=== PATIENT | male | born 1955 | race Caucasian/White ===

== ENCOUNTER 2018-05-17 19:39 | Emergency (ER) | payer MEDICARE, BC ==
[2018-05-17 20:17] LABS: BASO % 0.6 % (0-6); EOS % 0.2 % (0-6); GRAN % 66.1 % (47-80); HEMATOCRIT 32.1 % (42.0-52.0); HEMOGLOBIN 10.5 gm/dl (14.0-18.0); MEAN CORPUSCULAR HGB CONC 32.7 g/dl (32-36); MEAN PLATELET VOLUME 8.5 fl (7.4-10.4); MONO % 10.1 % (0-9); PLATELET COUNT 250 K/uL (130-400); RED BLOOD COUNT 3.49 M/uL (4.40-5.70); RED CELL DISTRIBUTION WIDTH 16.3 % (11.5-14.5); WHITE BLOOD COUNT W/O DIFF 5.2 K/uL (4.2-12.2)
[2018-05-17 20:30] LABS: BLOOD UREA NITROGEN 11 mg/dL (8-23); CREATININE 0.7 mg/dL (0.7-1.2); EST GLOMERULAR FILTRATION RATE > 60 mL/min; TOTAL PROTEIN 6.8 g/dL (6.6-8.7)
[2018-05-17] MEDS: MVI, ADULT NO.4 WITH VIT K 10 ML, THIAMINE HCL IV 100 MG in 0.9 % SODIUM CHLORIDE 1000M... IV SCH ×3 (20:30)
[2018-05-17 20:32] LABS: GLUCOSE,RANDOM 115 mg/dL (74-109)
[2018-05-17] MEDS: NITROGLYCERIN 0.4MG SL TABLET #25 BTL SL PRN (20:32)
[2018-05-17] MEDS: ASPIRIN 81 MG CHEWABLE TABLET PO ONE (20:33)
[2018-05-17 20:35] LABS: ALB/GLOB RATIO 1.8 (1.1-1.8); ALBUMIN 4.4 g/dL (4.0-5.0); ALKALINE PHOSPHATASE 125 U/L (40-129); ALT/SGPT 12 U/L (<41); AST/SGOT 20 U/L (10.0-50.0); CREATINE PHOSPHOKINASE 108 U/L (39-308)
[2018-05-17 20:38] LABS: CKMB 3.1 ng/mL (<6.73)
[2018-05-17 20:48] LABS: THYROID STIMULATING HORMONE 15.62 uIU/mL (0.270-4.20)
[2018-05-17] MEDS: KETOROLAC 30 MG/ML VIAL IVP ONE (21:07)
[2018-05-17 21:26] LABS: THYROXINE (T4) 4.33 ug/dL (4.5-11.7)
--- NOTE | 2018-05-17 22:18 | Emergency Department Record ---
History of Present Illness - General Chief Complaint: Chest Pain Stated Complaint: CHEST PAINS Time Seen by Provider: 05/17/18 19:52 Source: Patient Mode of Arrival: Ambulatory Limitations: No limitations - History of Present Illness Initial Comments: pt c/o cp. he was at [facility] all night last night for cp and was ruled out. he returns here tonight for same symptoms. he had chest/abd/pelvis ct that were neg at [facility] last night. he complains of being tired and is frequently falling asleep Onset/Timin -: Hour(s) Onset: During exertion Pain Location: Substernal Severity scale (1-10): 8 Quality: Other Consistency: Constant Improves With: Rest Worsens With: Exertion, Inspiration Anginal Symptoms: Dyspnea Treatments Prior to Arrival: None - Related Data Home Medications Medication Instructions Recorded Confirmed Last Taken No Home Med [NO HOME MEDS] 05/17/18 05/17/18 Unknown Allergies Allergy/AdvReac Type Severity Reaction Status Date / Time No Known Drug Allergies Allergy Verified 05/17/18 19:45 Travel Screening - Travel/Exposure Within Last 30 Days Have you traveled within the last 30 days?: No - Travel Symptoms Symptom Screening: None Review of Systems Reviewed: No additional complaints except as noted below Constitutional: Reports: As per HPI, Malaise. Denies: Chills, Fever, Night sweats, Weakness, Weight change Eyes: Reports: As per HPI. Denies: Eye discharge, Eye pain, Photophobia, Vision change ENT: Reports: As per HPI. Denies: Congestion, Dental pain, Ear pain, Epistaxis , Hearing loss, Throat pain Respiratory: Reports: As per HPI. Denies: Cough, Dyspnea, Hemoptysis, Stridor, Wheezes Cardiovascular: Reports: As per HPI, Chest pain. Denies: Arrhythmia, Dyspnea on exertion, Edema, Murmurs, Orthopnea, Palpitations, Paroxysmal nocturnal dyspnea, Rheumatic Fever, Syncope Endocrine: Reports: As per HPI. Denies: Fatigue, Heat or cold intolerance, Polydipsia, Polyuria Gastrointestinal: Reports: As per HPI. Denies: Abdominal pain, Constipation, Diarrhea, Hematemesis, Hematochezia, Melena, Nausea, Vomiting Genitourinary: Reports: As per HPI. Denies: Dysuria, Frequency, Hematuria, Incontinence, Retention, Testicular pain, Testicular mass, Urgency Musculoskeletal: Reports: As per HPI. Denies: Arthralgia, Back pain, Gout, Joint swelling, Myalgia, Neck pain Skin: Reports: As per HPI. Denies: Bruising, Change in color, Change in hair/ nails, Lesions, Pruritus, Rash Neurological: Reports: As per HPI. Denies: Abnormal gait, Confusion, Headache, Numbness, Paresthesias, Seizure, Tingling, Tremors, Vertigo, Weakness Psychiatric: Reports: As per HPI. Denies: Anxiety, Auditory hallucinations, Depression, Homicidal thoughts, Suicidal thoughts, Visual hallucinations Hematological/Lymphatic: Reports: As per HPI. Denies: Anemia, Blood Clots, Easy bleeding, Easy bruising, Swollen glands Past Medical History - SOCIAL HISTORY Smoking Status: Current every day smoker Alcohol Use: Occasional Drug Use Detail:: Marijuana - RESPIRATORY Hx Respiratory Disorders: No - CARDIOVASCULAR Hx Cardio Disorders: Yes Hx Hypertension: Yes - NEURO Hx Neuro Disorders: No - GI Hx GI Disorders: Yes Hx Irritable Bowel: Yes - Hx Genitourinary Disorders: Yes Hx Bladder Problem: Yes ("irritable") - ENDOCRINE Hx Endocrine Disorders: No - MUSCULOSKELETAL Hx Musculoskeletal Disorders: Yes Comment:: foot problem - PSYCH Hx Psych Problems: Yes Hx Depression: Yes - HEMATOLOGY/ONCOLOGY Hx Hematology/Oncology Disorders: No Family Medical History Any Significant Family History?: Yes Hx Dementia: Mother Hx Diabetes: Brother/Sister Hx Heart Disease: Father Physical Exam - General General Appearance: Alert, Oriented x3, Cooperative, Mild distress - Head Head exam: Normal inspection - Eye Eye exam: Normal appearance, PERRL, EOMI Pupils: Normal accommodation - ENT ENT exam: Normal exam, Mucous membranes moist, Normal external ear exam, Normal orophraynx Ear exam: Normal external inspection. negative: External canal tenderness Nasal Exam: Normal inspection. negative: Discharge, Sinus tenderness Mouth exam: Normal external inspection, Tongue normal Teeth exam: Normal inspection. negative: Dental caries Throat exam: Normal inspection. negative: Tonsillar erythema, Tonsillar exudate - Neck Neck exam: Normal inspection, Full ROM. negative: Tenderness - Respiratory Respiratory exam: Normal lung sounds bilaterally. negative: Respiratory distress - Cardiovascular Cardiovascular Exam: Regular rate, Normal rhythm, Normal heart sounds - GI/Abdominal GI/Abdominal exam: Soft, Normal bowel sounds. negative: Tenderness - Rectal Rectal exam: Deferred - exam: Deferred - Extremities Extremities exam: Normal inspection, Full ROM, Normal capillary refill. negative: Tenderness - Back Back exam: Reports: Normal inspection, Full ROM. Denies: Muscle spasm, Rash noted, Tenderness - Neurological Neurological exam: Alert, CN II-XII intact, Normal gait, Oriented X3 - Psychiatric Psychiatric exam: Normal affect, Normal mood - Skin Skin exam: Dry, Intact, Normal color, Warm Course Vital Signs 05/17/18 05/17/18 05/17/18 19:46 20:26 20:34 Temperature 98.1 F Pulse Rate Pulse Rate [ 64 Tower Hand ] Pulse Rate [ 73 63 Pulse Ox Probe] Respiratory 20 16 14 Rate Blood Pressure 110/77 [Left Arm] Blood Pressure 102/71 107/68 [Right Arm] Pulse Ox 97 96 95 05/17/18 05/17/18 05/17/18 20:36 20:40 21:11 Temperature Pulse Rate 65 Pulse Rate [ 65 60 Tower Hand ] Pulse Rate [ Pulse Ox Probe] Respiratory 14 12 16 Rate Blood Pressure [Left Arm] Blood Pressure 97/66 107/61 [Right Arm] Pulse Ox 95 97 99 05/17/18 22:02 Temperature Pulse Rate Pulse Rate [ 60 Tower Hand ] Pulse Rate [ Pulse Ox Probe] Respiratory 12 Rate Blood Pressure [Left Arm] Blood Pressure 102/68 [Right Arm] Pulse Ox 99 - Reevaluation(s) Reevaluation #1: 05/18/18 00:51 pt slept entire time here. easily arousable Medical Decision Making - Lab Data Result diagrams: 05/17/18 19:50 05/17/18 19:50 Lab Results 05/17/18 05/17/18 05/17/18 Range/Units 19:50 19:50 19:50 WBC 5.2 (4.2-12.2) K/uL RBC 3.49 L (4.40-5.70) M/uL Hgb 10.5 L (14.0-18.0) gm/dl Hct 32.1 L (42.0-52.0) % MCV 92.0 (81-97) fl MCH 30.0 (27-33) pg MCHC 32.7 (32-36) g/dl RDW 16.3 H (11.5-14.5) % Plt Count 250 (130-400) K/uL MPV 8.5 (7.4-10.4) fl Gran % 66.1 (47-80) % Lymphocytes % 23.0 (16-45) % Monocytes % 10.1 H (0-9) % Eosinophils % 0.2 (0-6) % Basophils % 0.6 (0-6) % Sodium 134 L (136-145) mmol/L Potassium 3.9 (3.4-4.5) mmol/L Chloride 98 (98-107) mmol/L Carbon Dioxide 22.0 (22-29) mmol/L Anion Gap 14.0 (7-16) BUN 11 (8-23) mg/dL Creatinine 0.7 (0.7-1.2) mg/dL Estimated GFR > 60 mL/min Random Glucose 115 H (74-109) mg/dL Calcium 8.5 L (8.8-10.2) mg/dL Total Bilirubin 0.50 (0.2-1.0) mg/dL AST 20 (10.0-50.0) U/L ALT 12 (<41) U/L Alkaline Phosphatase 125 (40-129) U/L Creatine Kinase 108 (39-308) U/L CK-MB (CK-2) 3.1 (<6.73) ng/mL Troponin T < 0.010 (0-0.010) ng/mL NT-Pro-B Natriuret Pep 514.10 H (<125) pg/mL Total Protein 6.8 (6.6-8.7) g/dL Albumin 4.4 (4.0-5.0) g/dL Globulin 2.4 (1.4-4.8) gm/dL Albumin/Globulin Ratio 1.8 (1.1-1.8) TSH 15.62 H (0.270-4.20) uIU/mL Thyroxine (T4) (4.5-11.7) ug/dL T3 Uptake (25-35) % Ethyl Alcohol 0.171 H (0-0.010) g/dL 05/17/18 Range/Units 19:50 WBC (4.2-12.2) K/uL RBC (4.40-5.70) M/uL Hgb (14.0-18.0) gm/dl Hct (42.0-52.0) % MCV (81-97) fl MCH (27-33) pg MCHC (32-36) g/dl RDW (11.5-14.5) % Plt Count (130-400) K/uL MPV (7.4-10.4) fl Gran % (47-80) % Lymphocytes % (16-45) % Monocytes % (0-9) % Eosinophils % (0-6) % Basophils % (0-6) % Sodium (136-145) mmol/L Potassium (3.4-4.5) mmol/L Chloride (98-107) mmol/L Carbon Dioxide (22-29) mmol/L Anion Gap (7-16) BUN (8-23) mg/dL Creatinine (0.7-1.2) mg/dL Estimated GFR mL/min Random Glucose (74-109) mg/dL Calcium (8.8-10.2) mg/dL Total Bilirubin (0.2-1.0) mg/dL AST (10.0-50.0) U/L ALT (<41) U/L Alkaline Phosphatase (40-129) U/L Creatine Kinase (39-308) U/L CK-MB (CK-2) (<6.73) ng/mL Troponin T (0-0.010) ng/mL NT-Pro-B Natriuret Pep (<125) pg/mL Total Protein (6.6-8.7) g/dL Albumin (4.0-5.0) g/dL Globulin (1.4-4.8) gm/dL Albumin/Globulin Ratio (1.1-1.8) TSH (0.270-4.20) uIU/mL Thyroxine (T4) 4.33 L (4.5-11.7) ug/dL T3 Uptake 34 (25-35) % Ethyl Alcohol (0-0.010) g/dL Disposition Disposition: Discharge Clinical Impression: Chest pain Qualifiers: Chest pain type: unspecified Qualified Code(s): R07.9 - Chest pain, unspecified Disposition: Home, Self-Care Condition: (1) Good Instructions: Chest Pain (ED) Additional Instructions: follow up with family doctor and real estate paralegal as previously scheduled. take aspirin 81mg a day. return sooner if worse Forms: Patient Portal Access Quality - Quality Measures Quality Measures: N/A - Blood Pressure Screening Does Patient Have Any of the Following: No Blood Pressure Classification: Normal BP Reading Systolic Measurement: 106 Diastolic Measurement: 69 Screening for High Blood Pressure: < Normal BP, F/U Not Required > [G9413]
--- NOTE | 2018-05-20 21:24 | RADIOLOGY REPORT ---
EXAM: CHEST 2 VIEWS HISTORY: CHEST PAIN. SHORTNESS OF BREATH. TECHNIQUE: Upright PA and lateral views of the chest. COMPARISON: None. FINDINGS: The heart is not enlarged and the pulmonary vasculature is nondilated. Minor linear scarring vs. atelectasis in the lateral mid to lower right lung. The lungs and pleural spaces are otherwise clear. There is borderline to mild hyperinflation of the lungs. There are mild degenerative changes of the visualized spine. IMPRESSION: 1. NO EVIDENCE OF ACUTE CARDIOPULMONARY DISEASE. 2. BORDERLINE TO MILD HYPERINFLATION OF THE LUNGS. 3. MINIMAL LINEAR SCARRING VS. ATELECTASIS IN THE LATERAL MID TO LOWER RIGHT LUNG. JOB NUMBER: [id number] [facility]
== END 2018-05-18 01:11 | disposition home or self-care (01) ==
LOC: ER 19:39
DX: R07.2 Precordial pain (principal); R06.00 Dyspnea, unspecified; R53.83 Other fatigue; I10 Essential (primary) hypertension; F17.210 Nicotine dependence, cigarettes, uncomplicated
CPT/HCPCS: 99284 ×2; 96365; 96375; 82550; 85025; 82553; 80053; 84443; 84479; 84436; 84484; 83880; 71046; 93005; 93010; G0480; J1885; 80320; J3411; J7030

== ENCOUNTER 2018-05-18 02:56 | Emergency (ER) | payer MEDICARE, BC ==
[2018-05-18] MEDS ORDERED: MAGNESIUM HYDROXIDE/AL HYDROX 30 ML, LIDOCAINE VISC 2% 15ML 15 ML PO ONE ×2 (02:57)
--- NOTE | 2018-05-18 03:06 | Emergency Department Record ---
History of Present Illness - General Chief Complaint: General Stated Complaint: NOT FEELING WELL Time Seen by Provider: 05/18/18 02:57 Source: Patient Mode of Arrival: Ambulatory Limitations: No limitations - History of Present Illness Initial comments: pt just dcd 95 min ago. pt never left waiting room. he was given coffee and warm blanket. he now wants to be checked in again because he doesnt feel right. he had an extensive neg workup last night including cat scans of chest and abd. he had a neg work up tonight including 4 hour troponins. he slept the entire time he was here tonight and indeed is already back asleep in his room. pt has been legally intoxicated both nights but would be below .08 now. - [place] Coma Scale Eye Response: (4) Open spontaneously Motor Response: (6) Obeys commands Verbal Response: (5) Oriented [place] Total: 15 - Related Data Allergies Allergy/AdvReac Type Severity Reaction Status Date / Time No Known Drug Allergies Allergy Verified 05/17/18 19:45 Review of Systems Reviewed: No additional complaints except as noted below Constitutional: Reports: As per HPI. Denies: Chills, Fever, Malaise, Night sweats, Weakness, Weight change Eyes: Reports: As per HPI. Denies: Eye discharge, Eye pain, Photophobia, Vision change ENT: Reports: As per HPI. Denies: Congestion, Dental pain, Ear pain, Epistaxis , Hearing loss, Throat pain Respiratory: Reports: As per HPI. Denies: Cough, Dyspnea, Hemoptysis, Stridor, Wheezes Cardiovascular: Reports: As per HPI. Denies: Arrhythmia, Chest pain, Dyspnea on exertion, Edema, Murmurs, Orthopnea, Palpitations, Paroxysmal nocturnal dyspnea, Rheumatic Fever, Syncope Endocrine: Reports: As per HPI. Denies: Fatigue, Heat or cold intolerance, Polydipsia, Polyuria Gastrointestinal: Reports: As per HPI. Denies: Abdominal pain, Constipation, Diarrhea, Hematemesis, Hematochezia, Melena, Nausea, Vomiting Genitourinary: Reports: As per HPI. Denies: Dysuria, Frequency, Hematuria, Incontinence, Retention, Testicular pain, Testicular mass, Urgency Musculoskeletal: Reports: As per HPI. Denies: Arthralgia, Back pain, Gout, Joint swelling, Myalgia, Neck pain Skin: Reports: As per HPI. Denies: Bruising, Change in color, Change in hair/ nails, Lesions, Pruritus, Rash Neurological: Reports: As per HPI. Denies: Abnormal gait, Confusion, Headache, Numbness, Paresthesias, Seizure, Tingling, Tremors, Vertigo, Weakness Psychiatric: Reports: As per HPI. Denies: Anxiety, Auditory hallucinations, Depression, Homicidal thoughts, Suicidal thoughts, Visual hallucinations Hematological/Lymphatic: Reports: As per HPI. Denies: Anemia, Blood Clots, Easy bleeding, Easy bruising, Swollen glands Past Medical History - SOCIAL HISTORY Smoking Status: Current every day smoker Drug Use Detail:: Marijuana - RESPIRATORY Hx Respiratory Disorders: No - CARDIOVASCULAR Hx Cardio Disorders: Yes Hx Hypertension: Yes - NEURO Hx Neuro Disorders: No - GI Hx GI Disorders: Yes Hx Irritable Bowel: Yes - Hx Genitourinary Disorders: Yes Hx Bladder Problem: Yes ("irritable") - ENDOCRINE Hx Endocrine Disorders: No - MUSCULOSKELETAL Hx Musculoskeletal Disorders: Yes Comment:: foot problem - PSYCH Hx Psych Problems: Yes Hx Depression: Yes - HEMATOLOGY/ONCOLOGY Hx Hematology/Oncology Disorders: No Family Medical History Hx Dementia: Mother Hx Diabetes: Brother/Sister Hx Heart Disease: Father Physical Exam - General General Appearance: Alert, Oriented x3, Cooperative, No acute distress - Head Head exam: Normal inspection - Eye Eye exam: Normal appearance, PERRL, EOMI Pupils: Normal accommodation - ENT ENT exam: Normal exam, Mucous membranes moist, Normal external ear exam, Normal orophraynx Ear exam: Normal external inspection. negative: External canal tenderness Nasal Exam: Normal inspection. negative: Discharge, Sinus tenderness Mouth exam: Normal external inspection, Tongue normal Teeth exam: Normal inspection. negative: Dental caries Throat exam: Normal inspection. negative: Tonsillar erythema, Tonsillar exudate - Neck Neck exam: Normal inspection, Full ROM. negative: Tenderness - Respiratory Respiratory exam: Normal lung sounds bilaterally. negative: Respiratory distress - Cardiovascular Cardiovascular Exam: Regular rate, Normal rhythm, Normal heart sounds - GI/Abdominal GI/Abdominal exam: Soft, Normal bowel sounds. negative: Tenderness - Rectal Rectal exam: Deferred - exam: Deferred - Extremities Extremities exam: Normal inspection, Full ROM, Normal capillary refill. negative: Tenderness - Back Back exam: Reports: Normal inspection, Full ROM. Denies: Muscle spasm, Rash noted, Tenderness - Neurological Neurological exam: Alert, CN II-XII intact, Normal gait, Oriented X3 - Psychiatric Psychiatric exam: Normal affect, Normal mood - Skin Skin exam: Dry, Intact, Normal color, Warm Course Vital Signs 05/18/18 02:57 Temperature 97.8 F Pulse Rate [ 88 Pulse Ox Probe] Respiratory 20 Rate Blood Pressure 132/77 [Left Arm] Pulse Ox 96 - Reevaluation(s) Reevaluation #1: 05/18/18 03:07 pt asleep. drank gi cocktail. no signs of distress Disposition Disposition: Discharge Clinical Impression: Gastritis Qualifiers: Gastritis type: alcoholic Chronicity: acute Gastritis bleeding: without bleeding Qualified Code(s): K29.20 - Alcoholic gastritis without bleeding Disposition: Home, Self-Care Condition: (2) Stable Instructions: Gastritis (ED), Abuse of Alcohol (ED), At-Risk Alcohol Use (ED) Additional Instructions: follow up with family doctor. return sooner if worse. [place] as needed. decrease alcohol consumption Quality - Quality Measures Quality Measures: N/A - Blood Pressure Screening Does Patient Have Any of the Following: No Blood Pressure Classification: Pre-Hypertensive BP Reading Systolic Measurement: 132 Diastolic Measurement: 77 Screening for High Blood Pressure: < Pre-Hypertensive BP, F/U Documented > [ G8950] Pre-Hypertensive Follow-up Interventions: Follow-up with rescreen every year.
== END 2018-05-18 03:37 | disposition home or self-care (01) ==
LOC: ER 02:56
DX: K29.20 Alcoholic gastritis without bleeding (principal); I10 Essential (primary) hypertension; F17.210 Nicotine dependence, cigarettes, uncomplicated
CPT/HCPCS: 99283 ×2; J3490

== ENCOUNTER 2018-05-19 03:37 | Emergency (ER) | payer MEDICARE, BC ==
--- NOTE | 2018-05-19 03:56 | Emergency Department Record ---
History of Present Illness - General Chief Complaint: Back Pain/Injury Stated Complaint: BACK PAIN Time Seen by Provider: 05/19/18 03:39 Source: Patient Mode of Arrival: Ambulatory Limitations: No limitations - History of Present Illness Initial Comments: 62 yo male presents with lumbar pain for the last few days. He states he did not fall or have significant trauma. He states he stepped awkwardly off a curb and has had pain since then. He has a past history of back pain. The onset was gradual. No weakness or numbness. No changes in bowel or bladder disfunction. No other complaints at this time. No headache, neck pain, chest pain, abdominal pain. He points to the low lumbar area. He has been in the [facility] and [facility] ED in the last two days. He had a CT scan of the chest, abdomen and pelvis on 05/17/18 at [facility] for chest pain with epigastric pain. CT was read as no acute process, mild steatosis, old 7-9th rib fractures, old L2 fracture. Those symptoms have resolved. MD Complaint: Back pain Onset/Timin -: Hour(s) Place: Other (Homeless) Radiation: None Severity: Moderate Severity scale (1-10): 9 Quality: Aching Consistency: Constant Improves With: Movement Worsens With: Movement Context: Unknown Associated Symptoms: Denies other symptoms - Related Data Allergies Allergy/AdvReac Type Severity Reaction Status Date / Time No Known Drug Allergies Allergy Verified 05/17/18 19:45 Travel Screening - Travel/Exposure Within Last 30 Days Have you traveled within the last 30 days?: No - Travel Symptoms Symptom Screening: None Review of Systems Constitutional: Denies: Chills, Fever, Malaise, Weakness Eyes: Denies: Eye discharge ENT: Denies: Congestion, Throat pain Respiratory: Denies: Cough Cardiovascular: Denies: Chest pain, Syncope Endocrine: Denies: Fatigue Gastrointestinal: Denies: Abdominal pain, Diarrhea, Nausea, Vomiting Genitourinary: Denies: Dysuria, Frequency, Hematuria Musculoskeletal: Reports: As per HPI, Back pain Skin: Denies: Bruising, Change in color, Rash Neurological: Denies: Abnormal gait, Headache, Numbness, Tingling, Vertigo, Weakness Psychiatric: Reports: Anxiety Hematological/Lymphatic: Denies: Blood Clots, Easy bleeding, Easy bruising Past Medical History - SOCIAL HISTORY Smoking Status: Current every day smoker - RESPIRATORY Hx Respiratory Disorders: No - CARDIOVASCULAR Hx Cardio Disorders: Yes Hx Hypertension: Yes - NEURO Hx Neuro Disorders: No - GI Hx GI Disorders: Yes Hx Irritable Bowel: Yes - Hx Genitourinary Disorders: Yes Hx Bladder Problem: Yes ("irritable") - ENDOCRINE Hx Endocrine Disorders: No - MUSCULOSKELETAL Hx Musculoskeletal Disorders: Yes Comment:: foot problem - PSYCH Hx Psych Problems: Yes Hx Depression: Yes - HEMATOLOGY/ONCOLOGY Hx Hematology/Oncology Disorders: No Family Medical History Any Significant Family History?: Yes Hx Dementia: Mother Hx Diabetes: Brother/Sister Hx Heart Disease: Father Physical Exam - General General Appearance: Alert, Oriented x3, Cooperative, No acute distress, Other ( No acute obvious distress or discomfort. Non ill appearing.) Limitations: No limitations - Head Head exam: Atraumatic, Normocephalic, Normal inspection Head exam detail: negative: Abrasion, Contusion, Hematoma, Laceration - Eye Eye exam: Normal appearance, PERRL, EOMI. negative: Conjunctival injection Pupils: Normal accommodation - ENT ENT exam: Normal exam, Normal external ear exam Ear exam: Normal external inspection Nasal Exam: Normal inspection Mouth exam: Normal external inspection Teeth exam: Normal inspection Throat exam: Normal inspection - Neck Neck exam: Normal inspection, Full ROM. negative: Tenderness - Respiratory Respiratory exam: Normal lung sounds bilaterally. negative: Accessory muscle use, Decreased breath sounds, Respiratory distress, Rhonchi, Stridor, Wheezes - Cardiovascular Cardiovascular Exam: Regular rate, Normal rhythm, Normal heart sounds - GI/Abdominal GI/Abdominal exam: Soft, Normal bowel sounds. negative: Tenderness - Rectal Rectal exam: Deferred - exam: Deferred - Extremities Extremities exam: Normal inspection, Full ROM, Normal capillary refill. negative: Calf tenderness, Pedal edema, Tenderness - Back Back exam: Reports: Normal inspection, Full ROM, Muscle spasm, Paraspinal tenderness, Tenderness, Vertebral tenderness (lower lumbar). Denies: CVA tenderness (R), CVA tenderness (L), Rash noted Image of Body Front/Back: 1 - tenderness to palpation, normal inspection, no bruising or abrasions. - Neurological Neurological exam: Alert, Normal gait, Oriented X3. negative: Altered, Motor sensory deficit - Psychiatric Psychiatric exam: Normal affect, Normal mood. negative: Agitated, Anxious - Skin Skin exam: Dry, Intact, Normal color, Warm. negative: Abrasion, Cyanosis, Diaphoretic, Erythema, Mottled Course Vital Signs 05/19/18 03:45 Temperature 98.5 F Pulse Rate [ 81 Pulse Ox Probe] Respiratory 18 Rate Blood Pressure 123/81 [Left Arm] Pulse Ox 96 - Reevaluation(s) Reevaluation #1: The vitals were reviewed. No acute abnormalities of the vitals The EMR was reviewed He was evaluated for CP with negative enzymes [facility] ED record and [facility] ED reviewed 05/19/18 03:56 He states he is currently in between homes but staying with a friend in an apartment in town. 05/19/18 04:00 05/19/18 05:44 The [facility] XR was reviewed. Constipation with mild degenerative changes. The results was discussed with the patient. I discussed close follow up with his doctor. 05/19/18 05:46 The patient ambulated easily to the restroom without assistance. No visible limitations. Disposition Disposition: Discharge Clinical Impression: Lumbar spine strain Qualifiers: Encounter type: initial encounter Qualified Code(s): S39.012A - Strain of muscle, fascia and tendon of lower back, initial encounter Disposition: Home, Self-Care Condition: (1) Good Instructions: Low Back Strain (ED) Additional Instructions: Follow up with your doctor this week for a recheck of your back Return or be seen if any new symptoms or concerns occur Avoid prolonged standing or lifting. Forms: Patient Portal Access Time of Disposition: 05:46 Quality - Quality Measures Quality Measures: N/A - Blood Pressure Screening Does Patient Have Any of the Following: No Blood Pressure Classification: Pre-Hypertensive BP Reading Systolic Measurement: 123 Diastolic Measurement: 81 Screening for High Blood Pressure: < Pre-Hypertensive BP, F/U Documented > [ G8950] Pre-Hypertensive Follow-up Interventions: Referral to alternative/primary care provider.
[2018-05-19] MEDS ORDERED: ACETAMINOPHEN 500 MG TABLET PO ONE (05:45)
--- NOTE | 2018-05-21 09:55 | RADIOLOGY REPORT ---
EXAM: LUMBAR SPINE SERIES HISTORY: LOW BACK PAIN. TECHNIQUE: Four views of the lumbar spine were obtained. Comparison: None. FINDINGS: There are five lumbar vertebral segments. Mild end plate degenerative changes are present throughout. There is mild disk space narrowing of the L3-L4 and L4-L5 levels. Facet arthropathy is present throughout, but greatest from the L4 through the S1 levels. There is no spondylolysis, spondylolisthesis, or acute compression fracture. The bony pelvis appears intact. Moderate stool is present throughout the colon. IMPRESSION: 1. MILD MULTILEVEL DEGENERATIVE DISK DISEASE AND FACET ARTHROPATHY. 2. NO ACUTE LUMBAR SPINE PATHOLOGY. 3. MODERATE STOOL THROUGHOUT THE COLON. JOB NUMBER: [id number] MTDD
== END 2018-05-19 06:01 | disposition home or self-care (01) ==
LOC: ER 03:37
DX: S39.012A Strain of muscle, fascia and tendon of lower back, initial encounter (principal); Y92.488 Other paved roadways as the place of occurrence of the external cause; X50.0XXA Overexertion from strenuous movement or load, initial encounter; I10 Essential (primary) hypertension; F17.210 Nicotine dependence, cigarettes, uncomplicated; M79.672 Pain in left foot
CPT/HCPCS: 72110; 99282; 99283

== ENCOUNTER 2018-05-19 21:07 | Emergency (ER) | payer MEDICARE, BC ==
--- NOTE | 2018-05-19 23:10 | Emergency Department Record ---
History of Present Illness - General Chief complaint: Pain Stated complaint: LT FOOT PAIN Time Seen by Provider: 05/19/18 22:35 Source: Patient Mode of Arrival: Ambulatory Limitations: No limitations - History of Present Illness Initial comments: 62 yo male presents with chronic arthritis of the foot. He states the left foot gives him daily pain. This has been the case for several years. He uses a cane or walker as needed. He denies any new falls or injuries to the left foot. He denies any other injures. He is homeless in [place] currently and admits to not having a place to go at night. No redness to the foot. No weakness or numbness. He denies any other changes in his health since his other three ED visits this week in [place] or at [facility]. He has a family doctor. No cough, chest pain, fever, vomiting. He has a PCP. MD Complaint: Extremity pain -: Year(s) (Many years) Location: Left, Foot -: Yes Arthralgia Radiation: Distal Quality: Aching Consistency: Constant Improves with: Elevation, Immobilization Worsens with: Exertion, Walking Associated Symptoms: Denies other symptoms, Arthralgias - Related Data Allergies Allergy/AdvReac Type Severity Reaction Status Date / Time No Known Drug Allergies Allergy Verified 05/17/18 19:45 Review of Systems Constitutional: Denies: Chills, Fever, Malaise, Weakness Eyes: Denies: Eye discharge, Eye pain ENT: Denies: Congestion, Throat pain Respiratory: Denies: Cough Cardiovascular: Denies: Chest pain, Palpitations, Syncope Endocrine: Denies: Fatigue Gastrointestinal: Denies: Abdominal pain, Diarrhea, Nausea, Vomiting Genitourinary: Denies: Dysuria, Frequency, Hematuria Musculoskeletal: Reports: As per HPI, Arthralgia, Neck pain (chronic, no new changes). Denies: Back pain, Joint swelling Skin: Denies: Bruising, Change in color, Rash Neurological: Denies: Headache, Numbness, Weakness Psychiatric: Denies: Anxiety Hematological/Lymphatic: Denies: Blood Clots, Easy bleeding, Easy bruising Past Medical History - SOCIAL HISTORY Smoking Status: Current every day smoker - RESPIRATORY Hx Respiratory Disorders: No - CARDIOVASCULAR Hx Cardio Disorders: Yes Hx Hypertension: Yes - NEURO Hx Neuro Disorders: No - GI Hx GI Disorders: Yes Hx Irritable Bowel: Yes - Hx Genitourinary Disorders: Yes Hx Bladder Problem: Yes ("irritable") - ENDOCRINE Hx Endocrine Disorders: No - MUSCULOSKELETAL Hx Musculoskeletal Disorders: Yes Comment:: foot problem - PSYCH Hx Psych Problems: Yes Hx Depression: Yes - HEMATOLOGY/ONCOLOGY Hx Hematology/Oncology Disorders: No Family Medical History Hx Dementia: Mother Hx Diabetes: Brother/Sister Hx Heart Disease: Father Physical Exam - General General Appearance: Alert, Oriented x3, Cooperative, No acute distress, Other ( Cooperative, good historian, ) Limitations: No limitations - Head Head exam: Atraumatic, Normocephalic, Normal inspection Head exam detail: negative: Abrasion, Contusion, Hematoma, Laceration - Eye Eye exam: Normal appearance, PERRL. negative: Conjunctival injection - ENT ENT exam: Normal exam Ear exam: Normal external inspection Nasal Exam: Normal inspection Mouth exam: Normal external inspection Teeth exam: Normal inspection Throat exam: Normal inspection - Neck Neck exam: Normal inspection. negative: Tenderness - Respiratory Respiratory exam: Normal lung sounds bilaterally. negative: Respiratory distress - Cardiovascular Cardiovascular Exam: Regular rate, Normal rhythm, Normal heart sounds Peripheral Pulses: 2+: Dorsalis Pedis (L) - GI/Abdominal GI/Abdominal exam: Soft. negative: Tenderness - Rectal Rectal exam: Deferred - exam: Deferred - Extremities Extremities exam: Full ROM, Normal capillary refill, Tenderness, Other (Normal inspection of the foot except chronic nail changes consistent with chronic fungal infection, brisk CR, no warmth, no redness, no swelling, no bruising, he has brisk CR with intact sensation). negative: Calf tenderness, Joint swelling , Pedal edema Image of Feet: 1 - see note above, normal inspection except chronic nail changes, full ROM, no foot drop, no warmth or redness, intact sensation and pulses - Back Back exam: Reports: Full ROM. Denies: CVA tenderness (R), CVA tenderness (L), Paraspinal tenderness, Tenderness - Neurological Neurological exam: Alert, Normal gait (Baseline gate with walker. No assistance required. Stable and steady inspite of pain), Oriented X3. negative : Abnormal gait, Altered, Motor sensory deficit - Psychiatric Psychiatric exam: Normal affect, Normal mood. negative: Agitated, Anxious - Skin Skin exam: Dry, Intact, Normal color, Warm. negative: Cyanosis, Diaphoretic, Erythema, Mottled, Pallor, Rash Course - Reevaluation(s) Reevaluation #1: The patient ambulates without assistance or visible signs of pain or limitation of the left foot He has no other complaints tonight at this time He states this foot has hurt for years due to arthritis He ambulates without limitation, normal examination. No emergent medical condition apparent No immediate indication for XR for chronic unchanged condition I encouraged him to follow up with his PCP He was informed any roasterman pain control would need to be coordinated with his doctor He easily ambulated through the ED with his walker at his baseline, steady and stable without limitation 05/19/18 23:11 Disposition Disposition: Discharge Clinical Impression: Foot pain, left Disposition: Home, Self-Care Condition: (1) Good Instructions: Arthralgia (ED) Additional Instructions: Rest the foot Elevate if swelling Return to the ED for a recheck if there are any changes in the foot or any other concerns Call your doctor for a recheck of your multiple ED visits in [facility] in the last week Return anytime with any new concerns. Forms: Patient Portal Access Time of Disposition: 23:15 Quality - Quality Measures Quality Measures: N/A - Blood Pressure Screening Does Patient Have Any of the Following: No Blood Pressure Classification: Normal BP Reading Systolic Measurement: 101 Diastolic Measurement: 67 Screening for High Blood Pressure: < Normal BP, F/U Not Required > [G8783]
== END 2018-05-19 23:22 | disposition home or self-care (01) ==
LOC: ER 21:07
DX: M79.672 Pain in left foot (principal); I10 Essential (primary) hypertension; F17.210 Nicotine dependence, cigarettes, uncomplicated; Z59.0 Homelessness